=== PATIENT | male | born 1945 | race African-American/Black ===

== ENCOUNTER → 2021-09-05 | Emergency (ER) | payer MEDICARE, OTHER ==
[~2021-09-05] MED LIST: Lidocaine 1% w/Epinephrine 1:100K 20 ML VIAL ONE
== END ==
LOC: BURERS 13:43
DX: K61.1 Rectal abscess (principal); E78.5 Hyperlipidemia, unspecified; E78.00 Pure hypercholesterolemia, unspecified; I10 Essential (primary) hypertension; I25.10 Atherosclerotic heart disease of native coronary artery without angina pectoris; I25.2 Old myocardial infarction
CPT/HCPCS: 46050

== ENCOUNTER 2021-09-07 13:10 | Emergency (ER) | payer MEDICARE | END 2021-09-07 13:42 | disposition home or self-care (01) | LOC: BURERS 13:10 | DX: Z48.817 Encounter for surgical aftercare following surgery on the skin and subcutaneous tissue (principal); E78.5 Hyperlipidemia, unspecified; E78.00 Pure hypercholesterolemia, unspecified; I10 Essential (primary) hypertension; I25.10 Atherosclerotic heart disease of native coronary artery without angina pectoris; I25.2 Old myocardial infarction | CPT/HCPCS: 99282 ==

== ENCOUNTER 2021-09-09 14:17 | Emergency (ER) | payer MEDICARE | END 2021-09-09 14:47 | disposition home or self-care (01) | LOC: BURERS 14:17 | DX: Z48.817 Encounter for surgical aftercare following surgery on the skin and subcutaneous tissue (principal); I10 Essential (primary) hypertension; E78.5 Hyperlipidemia, unspecified; E78.00 Pure hypercholesterolemia, unspecified; I25.10 Atherosclerotic heart disease of native coronary artery without angina pectoris; I25.2 Old myocardial infarction | CPT/HCPCS: 99282 ==